=== PATIENT | female | born 1985 | race Caucasian/White ===

== ENCOUNTER → 2023-06-12 10:58 | Outpatient (CLI) | payer OTHER, SELFPAY ==
--- NOTE | 2023-06-12 11:01 | DI.MRI.S_ITS ---
BREAST MRI OF BOTH BREASTS: 06/12/2023 CLINICAL: High risk for Breast Cancer. PROCEDURE: MR BREAST BI WO/W CON INDICATIONS: high risk for breast cancer TECHNIQUE: The patient was placed prone in a dedicated breast imaging coil. Precontrast axial STIR and 3D FLASH without fat saturation sequences were obtained. Both before and after bolus injection of contrast, sequential 1-minute axial 3D FLASH with fat saturation sequences for 3 time points, with subtraction images and maximum intensity projections (MIP's) generated. Delayed sagittal FLASH images with fat saturation were also obtained. Computer-aided detection, including computer algorithm analysis of MRI image data for lesion detection and characterization, pharmacokinetic analysis, with further physician review for interpretation, was performed. COMPARISON: None. FINDINGS: Image quality: Excellent. There is minimal background parenchymal enhancement. Right breast: No suspicious enhancement or mass lesions. Left breast: No suspicious enhancement or mass lesions. Miscellaneous: No axillary or intramammary adenopathy. Limited visualization of the heart, lungs, mediastinum and upper abdomen are unremarkable. IMPRESSION: NEGATIVE Negative breast MRI. Electronically Signed By: Gloria Collier M.D. lk/:06/12/2023 16:50:22 letter sent: Normal Exam ACR BI-RADS Category 1: Negative [id number]
== END ==
PROVIDERS: PCP Physician Assistant; Referring Provider Physician Assistant; Visit Provider Physician Assistant
DX: Z12.39 Encounter for other screening for malignant neoplasm of breast (principal); Z91.89 Other specified personal risk factors, not elsewhere classified
CPT/HCPCS: 77049